=== PATIENT | female | born 1955 | race Caucasian/White ===

== ENCOUNTER 2018-09-09 21:50 | Emergency (ER) | payer BC, OTHER ==
[~2018-09-09] VITALS: Wt 74.8 kg
[2018-09-09 22:21] LABS: BILIRUBIN NEGATIVE (NEGATIVE); BLOOD TRACE-INTACT (NEGATIVE); CLARITY SL CLOUDY (CLEAR); COLOR YELLOW (YELLOW); GLUCOSE 2+ (NEGATIVE); KETONE 2+ (NEGATIVE); LEUKO ESTERASE NEGATIVE (NEGATIVE); NITRITE POSITIVE (NEGATIVE); PH 5.5 (5.0-9.0); SPECIFIC GRAVITY >= 1.030 (1.005-1.030); UROBILINOGEN 0.2 E.U./dl (0.2-1.0)
[2018-09-09 22:39] LABS: EPITHELIAL CELLS 20-25
[2018-09-09 22:40] LABS: BACTERIA 1+; RBC 21-30 rbc/hpf (0-2); WBC 0-2 wbc/hpf (0-5)
[2018-09-09] MEDS ORDERED: AUGMENTIN 875-875 MG PO (22:55)
== END 2018-09-09 23:41 | disposition home or self-care (01) ==
LOC: ED 21:50
PROVIDERS: Student in an Organized Health Care Education/Training Program
DX: L03.115 Cellulitis of right lower limb (principal); N39.0 Urinary tract infection, site not specified; L53.9 Erythematous condition, unspecified